=== PATIENT | female | born 1960 | race Asian ===

== ENCOUNTER 2017-08-16 22:22 | Emergency (ER) | payer MEDICAID, OTHER ==
[~2017-08-16] VITALS: Ht 152.4 cm; Wt 52.2 kg
[2017-08-16] MEDS ORDERED: MORPHINE SULFATE 8mg/ml INJ SDV IV ONE (23:00)
[2017-08-16] MEDS ORDERED: ASPirin-EC 325mg tab PO ONE (23:00)
[2017-08-16] MEDS ORDERED: NITROGLYCERIN 0.4 MG SL TAB SL ONE (23:00)
[2017-08-16 23:15] LABS: Basophils # (auto) 0.1 uL; Eosinophils # (auto) 0.2 uL; Eosinophils % (auto) 2.6 % (0.0-7.0); Hemoglobin 11.3 g/dL (12.2-16.2); Lymphocytes # (auto) 1.9 uL; Lymphocytes % (auto) 26.2 % (10.0-50.0); Mean Corpuscular Hemoglobin 29.2 pg (28.0-32.0); Mean Corpuscular Hgb Conc. 33.2 g/dL (32.0-36.0); Mean Corpuscular Volume 88.1 fL (80.0-100.0); Monocytes # (auto) 0.9 uL; Monocytes % (auto) 12.5 % (0.0-12.0); Neutrophils # (auto) 4.2 uL; Neutrophils % (auto) 57.7 % (37.0-80.0); Platelet Count (auto) 232 10^3/uL (140-450); Red Blood Cells 3.86 10^6/uL (4.0-5.20); Red Cell Distribution Width 12.8 % (11.8-14.3); White Blood Cell 7.3 10^3/uL (4.4-10.8)
[2017-08-16 23:28] LABS: INR 0.85 (0.9-1.15); Partial Thromboplastin Time 25.8 sec (23.78-33.04); Prothrombin Time 9.2 sec (9.27-12.13)
[2017-08-16 23:32] LABS: Alanine Aminotransferase 39 U/L (13-56); Anion Gap 9 (5-15); Aspartate Aminotransferase 35 U/L (15-37); BUN/Creatinine Ratio 10.7; Blood Urea Nitrogen 9 mg/dL (7-18); Calcium 8.3 mg/dL (8.5-10.1); Carbon Dioxide 26 mmol/L (21-32); Chloride 110 mmol/L (98-107); GFR African American 90 mL/min; GFR Non-African American 75 mL/min; Glucose 93 mg/dL (74-106); Potassium 3.5 mmol/L (3.5-5.1); Sodium 145 mmol/L (136-145)
[2017-08-16] MEDS ORDERED: MORPHINE SULFATE INJECTION 1 ML ONE (23:34)
[2017-08-16 23:36] LABS: Alkaline Phosphatase 172 U/L (45-117); Bilirubin, Total 0.3 mg/dL (0.2-1.0); Total Protein 7.1 g/dL (6.4-8.2)
[2017-08-17 00:19] VITALS: BP 147/92
== END 2017-08-17 00:38 | disposition home or self-care (01) ==
LOC: ER 22:22 → EDBD 22:22 → ER 08-17 00:38
DX: R07.9 Chest pain, unspecified (principal); I10 Essential (primary) hypertension; H92.02 Otalgia, left ear; R42 Dizziness and giddiness; Z79.82 Long term (current) use of aspirin
CPT/HCPCS: 36415; 71045; 80053; 83880; 84484; 85025; 85610; 85730; 93005; 96374; 99285; J2270